=== PATIENT | male | born 1980 | race Caucasian/White ===

== ENCOUNTER → 2017-07-02 | Outpatient (CLI) | payer BC ==
[2017-07-02 13:48] LABS: INR 0.95; PROTHROMBIN TIME 12.8 SECONDS (12.4-14.5)
[2017-07-02 13:49] LABS: PARTIAL THROMBOPLASTIN TIME 34.6 SECONDS (26.8-37.9)
[2017-07-02 14:27] LABS: LDH LACTATE DEHYDROGENASE 287 U/L (87-241)
[2017-07-03 10:14] LABS: HCG SERUM TUMOR MARKER QUANT 12 mIU/mL (0-3)
[2017-07-04 10:50] LABS: ALPHA FETOPROTEIN TUMOR QUANT 2.1 NG/ML (<8.1)
== END ==
LOC: M SMT 11:21
DX: Z01.818 Encounter for other preprocedural examination (principal); N50.9 Disorder of male genital organs, unspecified
CPT/HCPCS: 83615

== ENCOUNTER 2017-07-09 10:56 | Day surgery (SDC) | payer BC ==
[2017-07-09] MEDS ORDERED: LIDOCAINE 1% MDV 20ML VIAL SQ (11:15)
[2017-07-09] MEDS: LR 1,000 ML IV (11:15)
[2017-07-09] MEDS ORDERED: BUPIVACAINE/DEXTROSE 0.75% 2 ML AMP As Ordered (16:20)
[2017-07-09] MEDS ORDERED: MIDAZOLAM INJ 2 MG/2 ML VIAL (J2250) As Ordered (16:20)
[2017-07-09] MEDS ORDERED: LIDOCAINE 2% INJ 100 MG/5 ML SDV (FOR ANES.) As Ordered (16:20)
[2017-07-09] MEDS ORDERED: PROPOFOL 200 MG/20 ML VIAL As Ordered ×2 (16:20→16:37)
[2017-07-09] MEDS ORDERED: fentaNYL 100 MCG/2 ML INJECTION (J3010) As Ordered (16:20)
[2017-07-09] MEDS: LIDOCAINE 1% SDV INJ 30 ML VIAL As Ordered (17:15)
[2017-07-09] MEDS: BUPIVACAINE HCL 0.25% 30 ML VIAL As Ordered (17:15)
[2017-07-09] MEDS ORDERED: ONDANSETRON 4MG/2ML VIAL (J2405) IV (17:45)
[2017-07-09] MEDS ORDERED: LR 1,000 ML IV (17:45)
[2017-07-09] MEDS ORDERED: METOCLOPRAMIDE INJ 10MG/2ML VIAL (J2765) IV (17:45)
[2017-07-09] MEDS ORDERED: PERCOCET 5MG/325MG TAB PO (17:45)
[2017-07-09] MEDS ORDERED: HYDROMORPHONE HCL 0.5 MG/ 0.5 ML SYRINGE (J1170 PER 1) IV (17:45)
[2017-07-09] MEDS ORDERED: fentaNYL 100 MCG/2 ML INJECTION (J3010) IV (17:45)
[2017-07-09] MEDS: PERCOCET 5MG/325MG TAB PO ×2 (19:17→20:06)
== END 2017-07-09 23:30 | disposition home or self-care (01) ==
LOC: M SDC 10:56
DX: N50.9 Disorder of male genital organs, unspecified (principal); Z72.0 Tobacco use
CPT/HCPCS: 54530

== ENCOUNTER → 2017-08-19 | Outpatient (CLI) | payer BC | LOC: M PLARAD 13:26 | DX: C62.90 Malignant neoplasm of unspecified testis, unspecified whether descended or undescended (principal) | CPT/HCPCS: Q9967 ==

== ENCOUNTER → 2017-08-19 | Outpatient (CLI) | payer BC ==
[~2017-08-19] MED LIST: ISOVUE-370 76% 100ML VIAL (Q9967) As Ordered
== END ==
LOC: M RAD 10:41
DX: C62.90 Malignant neoplasm of unspecified testis, unspecified whether descended or undescended (principal)

== ENCOUNTER → 2017-08-25 | Outpatient (REF) | payer BC ==
[2017-08-25 17:52] LABS: INR 0.96; PROTHROMBIN TIME 12.9 SECONDS (12.1-14.4)
[2017-08-26 09:54] LABS: ALPHA FETOPROTEIN TUMOR QUANT 4.2 NG/ML (<8.1)
[2017-08-27 10:32] LABS: HCG SERUM TUMOR MARKER QUANT < 1 mIU/mL (0-3)
== END ==
LOC: M LAB REF 17:10
DX: C62.91 Malignant neoplasm of right testis, unspecified whether descended or undescended (principal); F17.210 Nicotine dependence, cigarettes, uncomplicated

== ENCOUNTER → 2017-08-29 | Outpatient (CLI) | payer BC ==
[~2017-08-29] MED LIST changes: -ISOVUE-370 76% 100ML VIAL (Q9967) As Ordered; +LIDOCAINE 2% MDV 20 ML VIAL As Ordered; +ceFAZolin 1GM INJ (J0690 PER 500MG) As Ordered
== END | disposition home or self-care (01) ==
LOC: M IRPRO 10:52
DX: C62.90 Malignant neoplasm of unspecified testis, unspecified whether descended or undescended (principal); R59.1 Generalized enlarged lymph nodes
CPT/HCPCS: 36561

== ENCOUNTER → 2017-09-01 | Outpatient (REF) | payer BC ==
[2017-09-02 11:54] LABS: ALPHA FETOPROTEIN TUMOR QUANT 2.7 NG/ML (<8.1)
[2017-09-03 00:12] LABS: HCG SERUM TUMOR MARKER QUANT < 1 mIU/mL (0-3)
== END ==
LOC: M LAB REF 13:55
DX: C62.91 Malignant neoplasm of right testis, unspecified whether descended or undescended (principal); F17.210 Nicotine dependence, cigarettes, uncomplicated

== ENCOUNTER → 2017-09-22 | Outpatient (REF) | payer BC ==
[2017-09-23 08:44] LABS: HCG SERUM TUMOR MARKER QUANT < 1 mIU/mL (0-3)
[2017-09-23 10:40] LABS: ALPHA FETOPROTEIN TUMOR QUANT 2.5 NG/ML (<8.1)
== END ==
LOC: M LAB REF 13:05
DX: C62.91 Malignant neoplasm of right testis, unspecified whether descended or undescended (principal); F17.210 Nicotine dependence, cigarettes, uncomplicated
CPT/HCPCS: 84702

== ENCOUNTER → 2018-03-03 | Outpatient (CLI) | payer BC ==
--- NOTE | 2018-03-04 19:44 | REP ---
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 Comparisons: Comparison PET-CT July 20, 2017. TECHNIQUE: 1 hour and 6 minutes following the intravenous injection of a 9.5 mCi dose of F-18 FDG, three-dimensional PET scintigraphy is acquired from the skull base to the proximal thighs. Triplanar noncontrast CT scanning is acquired through the same anatomic range for attenuation correction, and image registration with scan parameters optimized to minimize radiation exposure to the patient. PET scintigraphy and CT datasets were fused and displayed on a workstation with multiplanar and projection display capability. PET/CT Findings: Head and neck soft tissues are unremarkable. No abnormal hypermetabolic uptake is seen within the chest. No abnormal pulmonary nodule is seen. The previously noted increased uptake in the right anterior 4th rib is no longer apparent. A right sided Gkoala-X-Fmau catheter is noted. The previously noted retroperitoneal lymph node between the abdominal aorta and the vena cava has decreased in size and is no longer hypermetabolic. Maximum standard uptake value is 1.2. The node measures 0.7 cm. No new adenopathy is seen in the retroperitoneum or pelvis. Today's study again demonstrates some hypermetabolic uptake in the right inguinal canal with maximum standard uptake value 4.6, previously 6.9. This it is improved but not resolved. This may be postoperative inflammation although it is difficult to exclude neoplasm. Impression: The previously noted retroperitoneal lymph node uptake is no longer seen. Right inguinal soft tissue hypermetabolic uptake is improved but not resolved. No other abnormal hypermetabolic uptake. Electronically Signed by Alpesh Abdi MD 03/04/2018 07:49 P
== END ==
LOC: M PLARAD 14:56
PROVIDERS: ATTEND Internal Medicine Medical Oncology
DX: C62.91 Malignant neoplasm of right testis, unspecified whether descended or undescended (principal)
CPT/HCPCS: 78815; A9552

== ENCOUNTER → 2018-03-04 | Outpatient (CLI) | payer BC ==
[~2018-03-04] MED LIST changes: +GASTROGRAFIN SOLUTION 30ML (Q9963) As Ordered ONE; +ISOVUE-370 76% 100ML VIAL (Q9967) As Ordered ONE; -LIDOCAINE 2% MDV 20 ML VIAL As Ordered; -ceFAZolin 1GM INJ (J0690 PER 500MG) As Ordered
--- NOTE | 2018-03-05 00:48 | REP ---
Clinical: Testicular cancer . Comparison: 07/23/2017 . Technique: PA and lateral. Findings: The mediastinum and cardiac silhouette are normal. Gvplxy-I-Glkc identified with tip in the SVC. The lung hardy are clear and without acute consolidation, effusion, or pneumothorax. The skeletal structures are intact and normal. Impression: 1. No acute cardiopulmonary process. Electronically Signed by Maynor Norman MD 03/05/2018 12:39 A
--- NOTE | 2018-03-05 14:59 | REP ---
Clinical: Testicular cancer for restaging. Technique: Axial contrast enhanced images from the lung bases to the pubic symphysis using oral (per protocol) and 100 ml Isovue 370 intravenous contrast material with delayed images of the abdomen as well as coronal and sagittal re-formations. Comparison: 07/23/2017. Findings: Lung bases demonstrate minimal posterior basilar dependent changes. Visualized portions of the heart and pericardium appear normal. Liver includes stable subcentimeter cyst approaching the dome within the posterior segment right lobe. No further hepatic lesions are identified. Spleen, pancreas, gallbladder, bilateral adrenal glands and kidneys are normal. The enteric system is without obstruction or acute inflammatory process. Normal terminal ileum and appendix are identified in the right lower quadrant. Pelvis demonstrates normal bladder and prostate/seminal vesicles. No pelvic fluid or ascites. No free air. No intraperitoneal or retroperitoneal adenopathy. Abdominal aorta and vasculature appear normal. Musculoskeletal structures are intact without focal osseous abnormality. Impression: No acute abdominopelvic pathology appreciated. Specifically, no evidence for metastatic disease. No ascites, adenopathy, or acute focal inflammatory changes. Electronically Signed by Maynor Norman MD 03/05/2018 02:51 P
== END ==
LOC: M RAD 15:24
PROVIDERS: ATTEND Internal Medicine Medical Oncology
DX: C62.90 Malignant neoplasm of unspecified testis, unspecified whether descended or undescended (principal)
CPT/HCPCS: 71046; 74177; Q9963; Q9967

== ENCOUNTER → 2018-06-04 | Outpatient (CLI) | payer BC ==
[~2018-06-04] MED LIST changes: +BUPIVACAINE HCL 0.5% 10 ML VIAL As Ordered ONE; -GASTROGRAFIN SOLUTION 30ML (Q9963) As Ordered ONE; -ISOVUE-370 76% 100ML VIAL (Q9967) As Ordered ONE; +LIDOCAINE 1% MDV 20ML VIAL As Ordered ONE; +LIDOCAINE 2% MDV 20 ML VIAL As Ordered ONE
--- NOTE | 2018-06-24 08:35 | REPIR ---
DATE OF PROCEDURE: 06/04/2018 ATTENDING SURGEON: Dr. Betina Hemran LAMINATION TECHNICIAN: Federica Hanks PREOPERATIVE DIAGNOSIS: Testicular cancer. POSTOPERATIVE DIAGNOSIS: Testicular cancer. PROCEDURE: Right internal jugular vein tunneled central venous catheter with subcutaneous port removal. INDICATION: The patient is a 38-year-old male with testicular cancer who underwent chemotherapy and had a Port-A-Cath placed which no longer is needed and will undergo removal of the Port-A-Cath. ANESTHESIA: Local with 20 mL of 2% lidocaine mixed with 0.5% Marcaine. FLUORO TIME: 0.1 minutes. CONTRAST: None. COMPLICATIONS: None. DRAINS: None. SPECIMENS: None. IMPLANTS: None. DESCRIPTION OF PROCEDURE: The patient was taken to the angiography suite, placed supine on the angiography table and then prepped and draped in a standard surgical fashion. The skin and subcutaneous tissue overlying the port were anesthetized with 2% lidocaine mixed with 0.5% Marcaine. An incision was made through the previous incision. The port was sharply dissected free and then removed along with the catheter. Final fluoroscopic image showed no port or catheter remaining. The wound was then closed using #3-0 Monocryl suture in inverted interrupted fashion. Steri-Strips and dressings were applied. The patient tolerated the procedure well. All instrument, sponge and needle counts were correct at the end the case. There were no complications. Dr. Herman was present for and directed the entire case. The patient was transferred to the holding area and subsequently discharged in stable condition.
== END | disposition home or self-care (01) ==
LOC: M IRPRO 06:37
PROVIDERS: ATTEND Internal Medicine Medical Oncology
DX: Z45.2 Encounter for adjustment and management of vascular access device (principal); C62.90 Malignant neoplasm of unspecified testis, unspecified whether descended or undescended; Z92.21 Personal history of antineoplastic chemotherapy

== ENCOUNTER → 2018-08-18 | Outpatient (CLI) | payer BC ==
[~2018-08-18] MED LIST changes: -BUPIVACAINE HCL 0.5% 10 ML VIAL As Ordered ONE; +GASTROGRAFIN SOLUTION 30ML (Q9963) As Ordered ONE; +ISOVUE-370 76% 100ML VIAL (Q9967) As Ordered ONE; -LIDOCAINE 1% MDV 20ML VIAL As Ordered ONE; -LIDOCAINE 2% MDV 20 ML VIAL As Ordered ONE
--- NOTE | 2018-08-18 10:00 | REP ---
Clinical: Testicular carcinoma . Comparison: 03/04/2018 . Technique: PA and lateral. Findings: The mediastinum and cardiac silhouette are normal. The lung hardy are clear and without acute consolidation, effusion, or pneumothorax. The skeletal structures are intact and normal. Impression: 1. No acute cardiopulmonary process. Electronically Signed by Maynor Norman MD 08/18/2018 09:51 A
--- NOTE | 2018-08-18 13:02 | REP ---
Clinical: Restaging testicular cancer. Technique: Axial contrast enhanced images from the lung bases to the pubic symphysis with coronal and sagittal re-formations using oral (per protocol) and 100 ml Isovue 370 intravenous contrast material. Comparison: 03/04/2018. Findings: Lung bases are clear. Visualized heart and pericardium normal. Liver, spleen, pancreas, gallbladder, bilateral adrenal glands and kidneys are normal. The enteric system is without obstruction or acute inflammatory process. Normal cecum, terminal ileum and appendix identified in the right lower quadrant. Few sigmoid diverticula noted without acute diverticulitis. Pelvis demonstrates normal bladder and age appropriate prostate/seminal vesicles with small calcifications and central cyst unchanged as compared through 07/23/2017. The no ascites. No free air. No significant intraperitoneal or retroperitoneal adenopathy. Abdominal aorta and vasculature appear normal. Surrounding musculoskeletal structures are intact without focal osseous abnormality. Impression: 1. No acute abdominopelvic pathology appreciated. 2. No evidence for metastatic disease/recurrence. No ascites, focal inflammatory stranding, mass lesion or adenopathy noted. 3. Few scattered sigmoid diverticula without acute diverticulitis. Electronically Signed by Maynor Norman MD 08/18/2018 12:53 P
== END ==
LOC: M RAD 09:22
PROVIDERS: ATTEND Internal Medicine Medical Oncology
DX: C62.90 Malignant neoplasm of unspecified testis, unspecified whether descended or undescended (principal)
CPT/HCPCS: 71046; 74177; Q9963; Q9967

== ENCOUNTER → 2019-04-27 | Outpatient (CLI) | payer BC ==
--- NOTE | 2019-04-28 04:17 | REP ---
Clinical: Testicular carcinoma . Comparison: 08/18/2018 . Technique: PA and lateral. Findings: The mediastinum and cardiac silhouette are normal. The lung hardy are clear and without acute consolidation, effusion, or pneumothorax. The skeletal structures are intact and normal. Impression: 1. No consolidation, effusion, or obvious adenopathy. Electronically Signed by Maynor Norman MD 04/28/2019 04:09 A
--- NOTE | 2019-04-28 05:29 | REP ---
Clinical: Testicular carcinoma. Staging. Technique: Axial contrast enhanced images from the lung bases to the pubic symphysis with coronal and sagittal re-formations using 100 ml Isovue 370 intravenous contrast material. Comparison: 03/04/2018. Findings: Lung bases are clear. Liver, spleen, pancreas, gallbladder, bilateral adrenal glands and kidneys are normal. No the enteric system is without obstruction or acute inflammatory process. Normal terminal ileum and appendix are identified in the right lower quadrant. Few scattered sigmoid diverticula noted without acute diverticulitis. Pelvis demonstrates normal bladder and age appropriate prostate/seminal vesicles. Inguinal lymph nodes measuring up to approximately 12 mm are relatively stable and nonspecific. No ascites. No free air. No obvious intraperitoneal or retroperitoneal adenopathy. Musculoskeletal structures are intact. Impression: 1. No acute abdominopelvic pathology appreciated. 2. No evidence for metastatic disease. 3. Few scattered sigmoid diverticula without acute diverticulitis. Electronically Signed by Maynor Norman MD 04/28/2019 05:20 A
== END ==
LOC: M RAD 11:16
PROVIDERS: ATTEND Internal Medicine Medical Oncology
DX: C62.91 Malignant neoplasm of right testis, unspecified whether descended or undescended (principal)
CPT/HCPCS: 71046; 74177; Q9963; Q9967